=== PATIENT | male | born 1995 | race Caucasian/White ===

== ENCOUNTER 2019-03-30 21:54 | Emergency (ER) | payer OTHER ==
--- NOTE | 2019-03-30 22:11 | ED ---
Lower Extremity - HPI Summary HPI Summary: This patient is a 23 year old male brought in by correctional facility officers presenting to [facility] with a chief complaint of right ankle pain 2 hours ago. Pt was playing basketball, landed on someone else's foot and rolled his ankle. He states he is feeling pain on the outside and the inside of the ankle. He says the ankle is swollen. The patient rates his pain 8/10 in severity. - History of Current Complaint Chief Complaint: EDExtremityLower Stated Complaint: RIGHT ANKLE INJURY PER CO Hx Obtained From: Patient Mechanism Of Injury: Twisted Onset of Pain: Hours Onset/Duration: Hours Severity Initially: Severe Severity Currently: Severe Pain Intensity: 8 Pain Scale Used: 0-10 Numeric - Allergies/Home Medications Allergies/Adverse Reactions: Allergies Allergy/AdvReac Type Severity Reaction Status Date / Time amoxicillin Allergy Hives Verified 03/30/19 22:22 PMH/Surg Hx/FS Hx/Imm Hx Endocrine/Hematology History: Denies: Hx Diabetes Cardiovascular History: Denies: Hx Coronary Artery Disease GI History: Reports: Hx Gastroesophageal Reflux Disease Neurological History: Reports: Hx Headaches Psychiatric History: Reports: Hx Suicide Attempt Infectious Disease History: Yes Infectious Disease History: Reports: Hx of Known/Suspected MRSA Denies: Traveled Outside the [place] in Last 30 Days - Family History Known Family History: Negative: Hypertension - Social History Lives: Dormitory/Roommates - [facility] Hx Tobacco Use: No Review of Systems Negative: Fever Positive: Edema - Right ankle, Other - Right ankle/foot pain All Other Systems Reviewed And Are Negative: Yes Physical Exam - Summary Physical Exam Summary: Appearance: well appearing, no pain distress Skin: warm, dry, reflects adequate perfusion Head/face: normal Eyes: EOMI, PERRL ENT: mucous membranes moist Neck: supple, non-tender Respiratory: CTA, breath sounds present Cardiovascular: RRR, pulses symmetrical Abdomen: non-tender, soft Bowel Sounds: present Musculoskeletal: strength/ROM intact. Medial malleolar tenderness, lateral malleolar tenderness, swelling on both sides. No tenderness in proximal fibula. Good 2+ bilateral pedal pulses. Neuro: normal, sensory motor intact, A&Ox3 Triage Information Reviewed: Yes Vital Signs On Initial Exam: Initial Vitals Temp Pulse Resp BP Pulse Ox 98.8 F 67 16 147/82 99 03/30/19 21:56 03/30/19 21:56 03/30/19 21:56 03/30/19 21:56 03/30/19 21:56 Vital Signs Reviewed: Yes Diagnostics - Vital Signs Vital Signs Temp Pulse Resp BP Pulse Ox 03/30/19 21:56 98.8 F 67 16 147/82 99 - Laboratory Lab Statement: Any lab studies that have been ordered have been reviewed, and results considered in the medical decision making process. - Radiology Right Foot XR Radiology Interpretation Completed By: ED Physician Summary of Radiographic Findings: No fracture/dislocation. Pending official radiologist report. Right ankle XR Radiology Interpretation Completed By: ED Physician Summary of Radiographic Findings: Diffuse swelling. No fracture/dislocation. Pending offical radiologist report. Lower Extremity Course/Dx - Course Course Of Treatment: Nurses' notes reviewed. Patient with significant soft tissue swelling and likely high grade sprain. X-rays negative. Not dislocated. He is placed in a cam walker after Carlos wrap and required crutches. He is given Percocet here for discomfort but this cannot be continued at the longterm. Follow-up orthopedics. - Diagnoses Differential Diagnosis/HQI/PQRI: Positive: Dislocation, Fracture (Closed), Sprain Provider Diagnoses: Third degree ankle sprain Discharge - Sign-Out/Discharge Documenting (check all that apply): Patient Departure - Discharge Patient Received Moderate/Deep Sedation with Procedure: No - Discharge Plan Condition: Improved Disposition: LAW ENFORCEMENT/COURT Patient Education Materials: Ankle Sprain (ED) Referrals: Rodo Jacobs MD [Primary Care Provider] - Yamila Whaley MD [Medical Doctor] - Additional Instructions: Ice, elevate at rest, cam walker for stability, crutch walk as needed. Ibuprofen or Aleve for discomfort. Follow-up with the orthopedic surgeon, call for an appointment. Return if worse or other concerns. - Billing Disposition and Condition Condition: IMPROVED Disposition: Law Enforcement/Court - Attestation Statements Document Initiated by Barbara: Yes Documenting Scribe: Luis Black Provider For Whom Barbara is Documenting (Include Credential): Jose M Alejo MD Scribe Attestation: Luis Mari, scribed for Jose M Alejo MD on 03/30/19 at 2310. Scribe Documentation Reviewed: Yes Provider Attestation: The documentation as recorded by the scribe, Luis Black accurately reflects the service I personally performed and the decisions made by me, Jose M Alejo MD Status of Scribe Document: Viewed
[2019-03-30] MEDS ORDERED: oxyCODONE/Acetamin 5/325 MG* TAB PO ONE (22:44)
[2019-03-30 23:20] VITALS: BP 159/85
== END 2019-03-30 23:20 ==
LOC: ED 21:54
DX: S93.401A Sprain of unspecified ligament of right ankle, initial encounter (principal); K21.9 Gastro-esophageal reflux disease without esophagitis; X50.0XXA Overexertion from strenuous movement or load, initial encounter; Y93.67 Activity, basketball; Z88.0 Allergy status to penicillin; Z86.14 Personal history of Methicillin resistant Staphylococcus aureus infection
CPT/HCPCS: 99283; A9270-GY